=== PATIENT | female | born 1960 | race Caucasian/White ===

== ENCOUNTER 2021-01-17 04:00 | Inpatient (IN) | payer OTHER ==
[~2021-01-17] VITALS: Ht 160 cm; Wt 75.9 kg
[2021-01-17 04:19] LABS: HEMOGLOBIN 16.4 gm/dl (12.3-15.3); RED BLOOD COUNT 4.7 M/UL (4.00-5.10); WHITE BLOOD COUNT 9.3 K/UL (4.5-11.0)
[2021-01-17 04:45] LABS: BUN/CREATININE RATIO 9 (0-10)
[2021-01-18] MEDS ORDERED: LASIX20 MG PO (11:37)
[2021-01-18] MEDS ORDERED: IPRAT-ALBUT 0.5-3 ML NEB (11:37)
[2021-01-18] MEDS ORDERED: ASPIRIN EC81 MG PO (11:37)
[2021-01-18] MEDS ORDERED: LISINOPRIL5 MG PO (11:37)
[2021-01-18] MEDS ORDERED: COMPACT COMPRE1 EACH MC (11:42)
--- NOTE | 2021-01-18 13:00 | NUR ---
PATIENTS O2 SAT ON ROOM AIR WAS 90-94%. WHEN UP WALKING O2 SAT ON ROOM AIR WAS 90%. PATIENT WILL NOT QUALIFY FOR HOME OXYGEN. AWARE AND SAYS ITS OKAY.
== END 2021-01-18 15:02 | disposition home or self-care (01) | DRG 280 ==
LOC: ER1 04:00 → CDU 06:04 → PROG CARE 07:47
PROVIDERS: Family Medicine; Internal Medicine Cardiovascular Disease; ADMIT Internal Medicine
PROC: 5A09457 Assistance with Respiratory Ventilation, 24-96 Consecutive Hours, Continuous Positive Airway Pressure (ICD-10-PCS; principal; 2021-01-17)
DX: I11.0 Hypertensive heart disease with heart failure (principal); J81.0 Acute pulmonary edema; I21.A1 Myocardial infarction type 2; J96.21 Acute and chronic respiratory failure with hypoxia; E66.9 Obesity, unspecified; I50.33 Acute on chronic diastolic (congestive) heart failure; F10.10 Alcohol abuse, uncomplicated; I16.0 Hypertensive urgency; D53.9 Nutritional anemia, unspecified; R73.9 Hyperglycemia, unspecified; Z20.822 Contact with and (suspected) exposure to COVID-19; F17.210 Nicotine dependence, cigarettes, uncomplicated; J44.9 Chronic obstructive pulmonary disease, unspecified; Z86.19 Personal history of other infectious and parasitic diseases; Z99.81 Dependence on supplemental oxygen; Z91.14 Patient's other noncompliance with medication regimen; Z68.29 Body mass index [BMI] 29.0-29.9, adult
CPT/HCPCS: ECHO; 36415; 36600; 51702; 71045; 80048; 80053; 81001; 82550; 82553; 82803; 82962; 83036; 83880; 84484; 85025; 87040; 93005; 93306; 94660; 94760; 96374; 99285; J1650; J1940; J2930; U0002

== ENCOUNTER 2021-07-27 22:36 | Inpatient (IN) | payer OTHER ==
[~2021-07-27] VITALS: Ht 149.9 cm; Wt 78.2 kg
[~2021-07-27 22:36] MED LIST: ASPIRIN EC81 MG PO; COMPACT COMPRE1 EACH MC; IPRAT-ALBUT 0.5-3 ML NEB; LASIX20 MG PO; LISINOPRIL5 MG PO
[2021-07-27 22:59] LABS: HEMOGLOBIN 14.7 gm/dl (12.3-15.3); RED BLOOD COUNT 4.34 M/UL (4.00-5.10); WHITE BLOOD COUNT 9.9 K/UL (4.5-11.0)
[2021-07-27 23:26] LABS: BUN/CREATININE RATIO 12 (0-10)
[2021-07-28] MEDS ORDERED: IPRAT-ALBUT 0.5-3 ML INH (03:12)
[2021-07-28] MEDS ORDERED: TYLENOL325 MG PO (03:13)
[2021-07-28] MEDS ORDERED: IBUPROFEN IB200 MG PO (11:24)
[2021-07-29 02:21] LABS: ACINETOBACTER BAUMANNII Not Detected (Negative); CANDIDA ALBICANS Not Detected (Negative); CANDIDA KRUSEI Not Detected (Negative); CANDIDA TROPICALIS Not Detected (Negative); ENTEROCOCCUS Not Detected (Negative); ESCHERICHIA COLI Not Detected (Negative); HAEMOPHILUS INFLUENZAE Not Detected (Negative); KLEBSIELLA OXYTOCA Not Detected (Negative); KLEBSIELLA PNEUMONIAE Not Detected (Negative); KPC-CARBAPENEM-RESISTANCE GENE Not Detected (Negative); PROTEUS Not Detected (Negative); PSEUDOMONAS AERUGINOSA Not Detected (Negative); SERRATIA MARCESANS Not Detected (Negative); STAPHYLOCOCCUS AUREUS Not Detected (Negative); STREP AGALACTIAE (GROUP B) Not Detected (Negative); STREP PYOGENES (GROUP A) Not Detected (Negative); STREPTOCOCCUS Not Detected (Negative); mecA (METHICILLIN RESIST GENE Not Detected (Negative); vanA/B (VANCOMYCIN RESIST GENE Not Detected (Negative)
[2021-07-29 05:04] LABS: STAPHYLOCOCCUS DETECTED (Negative)
[2021-07-29 05:21] LABS: HEMOGLOBIN 12.8 gm/dl (12.3-15.3); WHITE BLOOD COUNT 11.1 K/UL (4.5-11.0)
[2021-07-29 05:47] LABS: RED BLOOD COUNT 3.85 M/UL (4.00-5.10)
[2021-07-29] MEDS ORDERED: LISINOPRIL5 MG PO (10:56)
[2021-07-29] MEDS ORDERED: PREDNISONE20 MG PO (10:56)
[2021-07-29] MEDS ORDERED: LASIX20 MG PO (10:56)
[2021-07-29] MEDS ORDERED: BACTRIM DS TAB1 EACH PO (10:56)
[2021-07-29] MEDS ORDERED: SPIRIVA HANDIH18 MCG INH (10:56)
[2021-07-30 16:14] LABS: ORGANISM ID Not indicated. (.); SPECIMEN SOURCE Urine (.); STREPTOCOCCUS PNEUMONIAE AG Negative (Negative)
== END 2021-07-29 11:38 | disposition home or self-care (01) | DRG 291 ==
LOC: ER1 22:36 → CDU 07-28 00:16 → CCU 07-28 00:16
PROVIDERS: Family Medicine; ADMIT Internal Medicine
PROC: B24BZZZ Ultrasonography of Heart with Aorta (ICD-10-PCS; principal; 2021-07-28)
DX: I11.0 Hypertensive heart disease with heart failure (principal); J18.9 Pneumonia, unspecified organism; J96.01 Acute respiratory failure with hypoxia; Z20.822 Contact with and (suspected) exposure to COVID-19; I50.23 Acute on chronic systolic (congestive) heart failure; J44.0 Chronic obstructive pulmonary disease with (acute) lower respiratory infection; J44.1 Chronic obstructive pulmonary disease with (acute) exacerbation; E87.2 Acidosis; I07.1 Rheumatic tricuspid insufficiency; E11.9 Type 2 diabetes mellitus without complications; F17.210 Nicotine dependence, cigarettes, uncomplicated; F10.10 Alcohol abuse, uncomplicated; Z79.82 Long term (current) use of aspirin; Z71.6 Tobacco abuse counseling; Z79.4 Long term (current) use of insulin
CPT/HCPCS: ECHO; 36415; 36600; 71045; 80048; 80053; 81001; 82550; 82553; 82803; 82962; 83036; 83540; 83550; 83605; 83735; 83880; 84484; 85025; 85027; 85610; 85652; 86140; 87040; 87077; 87086; 87150; 87186; 87278; 87899; 93306; 94640; 94660; 94664; 94760; 96374; 99285; J0456; J0696; J1650; J1940; J2920; J2930; J3370; J7030; U0002

== ENCOUNTER → 2021-09-04 | Outpatient (CLI) | payer OTHER ==
[~2021-09-04] MED LIST changes: +BACTRIM DS TAB1 EACH PO; +IBUPROFEN IB200 MG PO; +IPRAT-ALBUT 0.5-3 ML INH; +PREDNISONE20 MG PO; +SPIRIVA HANDIH18 MCG INH; +TYLENOL325 MG PO
== END ==
LOC: HEART 5 08:19
DX: R93.1 Abnormal findings on diagnostic imaging of heart and coronary circulation (principal); I50.22 Chronic systolic (congestive) heart failure; I25.9 Chronic ischemic heart disease, unspecified
CPT/HCPCS: 78452; A9502; J2785